=== PATIENT | female | born 1990 | race Caucasian/White ===

== ENCOUNTER 2017-01-04 11:45 | Emergency (ER) | payer BC ==
[~2017-01-04] VITALS: Ht 167.6 cm; Wt 73.2 kg
[2017-01-04 11:52] VITALS: Ht 167.6 cm; Wt 73.2 kg
--- OUTSIDE RECORDS SUMMARY | 2017-01-04 12:03 | XMS REPORT | CCD ---
Author Author ELIZABETH QUINTANA Organization Unknown Address [address], [place] [id number] Phone 0 Care Team Providers Care Garment Steamer Name Role Phone AVEL MATTSON Attending Physician 0 Vital Signs Unknown. Allergies Unknown. Procedures Unknown. History of Immunizations Unknown. Problems Unknown. Results Unknown. Medications Unknown. Medications Administered Unknown. Encounters Unknown. Social History Smoking Status Code Start Date End Date Unknown if ever smoked [id number] Patient Decision Aids Unknown. Instructions You were admitted to [facility] on 09/25/2013. You were discharged from [facility] on 09/25/2013. Should you have any questions prior to discharge, please contact a member of your healthcare team. If you have left the hospital and have any questions, please contact your primary care physician. Chief Complaint and Reason For Visit Chief Complaint Date of Onset RT THUMB XRAY Function Status Unknown. Plan of Care Unknown. Referral/Transition of Care Unknown.
--- OUTSIDE RECORDS SUMMARY | 2017-01-04 12:03 | XMS REPORT | Summary of Care ---
Author Author Latisha Lawrence M.D. Organization Unknown Address Unknown Phone Unavailable Care Team Providers Care Credit Union Field Examiner Name Role Phone Latisha Lawrence M.D. Unavailable Unavailable Dunia Beckford Unavailable Unavailable Unavailable Unavailable Functional Status Name Dates Details Functional status health issues are not documented Status: Name Dates Details Cognitive status health issues are not documented Status: Problems Name Dates Details Ear pain (388.70, H92.09) Status: Active Decreased sense of smell (781.1, R43.8) Status: Active Ear pressure (388.8, H93.8X9) Status: Active Nasal congestion (478.19, R09.81) Status: Active Gluten enteropathy (579.0, K90.0) Status: Active Vitamin D deficiency (268.9, E55.9) Status: Active Allergic rhinitis due to other allergen (477.8, J30.89) Status: Active Allergic rhinitis due to pollen (477.0, J30.1) Status: Active Eustachian tube dysfunction, bilateral (381.81, H69.83) Status: Active History of wheezing (V12.69, Z87.898) Status: Active Recurrent otitis externa, bilateral (380.10, H60.93) Status: Active Medications Name Dates Details Flonase Allergy Relief 50 MCG/ACT Nasal Suspension * Start 28-Apr-2015 Active Dupree 5-325 MG Oral Tablet * Refills: 0 Active Orsythia 0.1-20 MG-MCG Oral Tablet * Refills: 0 Active ProAir HFA 108 (90 Base) MCG/ACT Inhalation Aerosol Solution * Refills: 0 Active Sudafed TABS * Refills: 0 Active Claritin 10 MG Oral Tablet * Refills: 0 Active ClonazePAM 0.5 MG Oral Tablet * Refills: 0 Active Azelastine HCl - 0.1 % Nasal Solution 1 spray each nostril twice a day -as needed. * Quantity: 1 Refills: 6 Latisha Lawrence M.D. * Start 12-Dec-2016 Active 30 ML Bottle Fluticasone Propionate 50 MCG/ACT Nasal Suspension 1 spray each nostril-twice a day. * Quantity: 1 Refills: 6 Lawrence M.D., Latisha * Start 12-Dec-2016 End 10-Jul-2017 Active 16 GM Bottle Montelukast Sodium 10 MG Oral Tablet TAKE ONE TABLET BY MOUTH EVERY EVENING * Quantity: 30 Refills: 6 Lawrence M.D., Latisha * Start 12-Dec-2016 End 10-Jul-2017 Active Allergies and Adverse Reactions Name Dates Details Augmentin TABS (Allergy) Status: Active Procedures Procedure Dates Details History of Indirect Laryngoscopy (Diagnostic) History of Shoulder Surgery History of Cholecystectomy History of Ear Pressure Equalization Tube, Insertion, Bilaterally MOLD PANEL [id number] Ordered: 12-Dec-2016 Celiac Disease Comprehensive [id number] Ordered: 12-Dec-2016 Immunization Name Dates Details Immunizations not documented Family History Name Dates Details Family history of allergic rhinitis (V19.6, Z84.89) Status: Active Family history of urticaria (V19.4, Z84.0) Status: Active Family history of asthma (V17.5, Z82.5) Status: Active Social History Name Dates Details Unknown if ever smoked Vital Signs Date Test Result Details 12-Dec-2016 10:06 BP Systolic 120 mm[Hg] Status: Comments: Location: ; Position: BP Diastolic 70 mm[Hg] Status: Comments: Location: ; Position: Temperature 98.4 f Status: Comments: Method: Height 66.1 in Status: Weight 160.9 lb Status: Body Mass Index Calculated 25.89 kg/m2 Status: Body Surface Area Calculated 1.83 m2 Status: Results Date Description Value Details Results not documented Plan of Care Name Dates Details Planned Observations Planned Goals not documented Planned Encounters Appointment; Provider: Ean Abraham On 13-Feb-2017 08:30 Interventions Provided Medication Changes* Azelastine HCl - 0.1 % Nasal Solution - Start * Fluticasone Propionate 50 MCG/ACT Nasal Suspension - Start * Montelukast Sodium 10 MG Oral Tablet - Start Labs/Procedures/Imaging* Celiac Disease Comprehensive [id number]; To be Done: 12 Dec 2016 * MOLD PANEL [id number]; To be Done: 12 Dec 2016 Instructions Name Dates Details Instructions not documented Encounters Appointment; Cosme Hamlin M.D. Encounter Diagnosis: Problem not documented On 11-May-2015 08:30
--- OUTSIDE RECORDS SUMMARY | 2017-01-04 12:03 | XMS REPORT | Summary of Care ---
Author Author Latisha Lawrence M.D. Organization Unknown Address Unknown Phone Unavailable Care Team Providers Care Olericulturist Name Role Phone Latisha Lawrence M.D. 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 * Quantity: 1 Refills: 6 Bryan Lawrence M.D.ia * Start 12-Dec-2016 Active 30 ML Bottle Fluticasone Propionate 50 MCG/ACT Nasal Suspension 1 spray each nostril-twice a day. * Quantity: 1 Refills: 6 Howard BlackwoodLatisha * Start 12-Dec-2016 End 10-Jul-2017 Active 16 GM Bottle Montelukast Sodium 10 MG Oral Tablet TAKE ONE TABLET BY MOUTH EVERY EVENING * Quantity: 30 Refills: 6 Howard Blackwood Latisha * Start 12-Dec-2016 End 10-Jul-2017 Active Allergies and Adverse Reactions Name Dates Details Augmentin TABS (Allergy) Status: Active Procedures Procedure Dates Details History of Indirect Laryngoscopy (Diagnostic) History of Shoulder Surgery History of Cholecystectomy History of Ear Pressure Equalization Tube, Insertion, Bilaterally Procedures not documented Immunization Name Dates Details Immunizations not documented [...] m2 Status: Results Date Description Value Details 12-Dec-2016 13:11 THYROID STIM. HORMONE 3602 THYROID STIM. HORMONE 1.724 uIU/mL Range: 0.550-4.780 Comments: No established reference ranges for infants and children <2 years of age----- 13:11 Vitamin D, 25 - Hydroxy 3111 VITAMIN D, 25-HYDROXY 7 ng/mL (Below low threshold) Range: 30-100 13-Dec-2016 17:00 MOLD PANEL [id number] Comments: [facility] performed at: ID, [facility], [address], [place], [address], Ethanol Operations Manager: Price Rincon D.O., MPHQuest Collection Date/Time: [id number] Results Received Date/Time: [id number] Reported Date/Time: [id number] FASTING:NO PENICILLIUM NOTATUM (M1) IGE <0.10 kU/L Comments: [KS]----- CLASS 0 Comments: [KS]----- CLADOSPORIUM HERBARUM (M2) IGE <0.10 kU/L Comments: [KS]----- CLASS 0 Comments: [KS]----- ASPERGILLUS FUMIGATUS (M3) IGE <0.10 kU/L Comments: [KS]----- CLASS 0 Comments: [KS]----- MUCOR RACEMOSUS (M4) IGE <0.10 kU/L Comments: [KS]----- CLASS 0 Comments: [KS]----- AUREOBASIDIUM PULLULANS (M12) IGE <0.10 kU/L Comments: [KS]----- CLASS 0 Comments: [KS]----- EPICOCCUM PURPURASCENS (M14) IGE <0.10 kU/L Comments: [KS]----- CLASS 0 Comments: [KS]----- FUSARIUM MONILIFORME (M9) IGE <0.10 kU/L Comments: [KS]----- CLASS 0 Comments: [KS]----- HELMINTHOSPORIUM HALODES (M8) IGE <0.10 kU/L Comments: [KS]----- CLASS 0 Comments: [KS]----- PHOMA BETAE (M13) IGE <0.10 kU/L Comments: [KS]----- CLASS 0 Comments: [KS]----- STEMPHYLIUM BOTRYOSUM (M10) IGE <0.10 kU/L Comments: [KS]----- CLASS 0 Comments: [KS]----- 17:01 INTERPRETATION SEE NOTE Comments: [facility] performed at: ID, [facility] [place], [address] [place], [address], Ethanol Operations Manager: Price Rincon D.O., MPHQuest Collection Date/Time: [id number] Results Received Date/Time: [id number] Reported Date/Time: [id number] FASTING:NO Comments: Specific Level of AllergenIGE Class kU/L Specific IGE Antibody ----- --------- ----- 0 <0.10 Absent/Undetectable 0/1 0.10-0.34 Very Low Level 1 0.35-0.69 Low Level 2 0.70-3.49 Moderate Level 3 3.50-17.4 High Level 4 17.5-49.9 Very High Level 5 50-100 Very High Level 6 >100 Very High LevelThe clinical relevance of allergen results of0.10-0.34 kU/L are undetermined and intended forspecialist use.Allergens denoted with a "" include results usingone or more analyte specific reagents. In thosecases, the test was developed and its analyticalperformance characteristics have been determined by[facility]. It has not been cleared or approvedby the U.S. Food and Drug Administration. This assayhas been validated pursuant to the CLIA regulationsand is used for clinical purposes.[KS]----- 15-Dec-2016 08:11 Celiac Disease Comprehensive [id number] Comments: [facility] performed at: [BN] [facility], [address] [place] [address], [address], , Ethanol Operations Manager: Price Smith MDTesting performed at: [DA] [facility], [address] [place] [address], [place], [address], , Ethanol Operations Manager: FLORENTINO Shannon MD DEAMIDATED GLIADIN ABS, IGA 1 units Range: 0-19 Comments: Negative 0 - 19 Weak Positive 20 - 30 Moderate to Strong Positive >30----- DEAMIDATED GLIADIN ABS, IGG 3 units Range: 0-19 Comments: Negative 0 - 19 Weak Positive 20 - 30 Moderate to Strong Positive >30----- T-TRANSGLUTAMINASE (TTG) IGA <2 U/mL Range: 0-3 Comments: Negative 0 - 3 Weak Positive 4 - 10 Positive >10 Tissue Transglutaminase (tTG) has been identified as the endomysial antigen. Studies have demonstr- ated that endomysial IgA antibodies have over 99% specificity for gluten sensitive enteropathy.----- T-TRANSGLUTAMINASE (TTG) IGG <2 U/mL Range: 0-5 Comments: Negative 0 - 5 Weak Positive 6 - 9 Positive >9----- ENDOMYSIAL ANTIBODY IGA Negative Range: Negative IMMUNOGLOBULIN A, QN, SERUM 28 mg/dL (Below low threshold) Range: 87-352 Comments: Result confirmed on concentration.----- Plan of Care Name Dates Details Planned Observations Planned Goals not documented Planned Encounters Appointment; Provider: Ean Abraham On 13-Feb-2017 08:30 Instructions Name Dates Details Instructions not documented Encounters Appointment; Latisha Lawrence M.D. Encounter Diagnosis: Problem not documented On 12-Dec-2016 10:00 Appointment; Cosme Hamlin M.D. Encounter Diagnosis: Problem not documented On 11-May-2015 08:30
--- OUTSIDE RECORDS SUMMARY | 2017-01-04 12:03 | XMS REPORT | Summary of Care ---
Author Author Latisha Lawrence M.D. Organization Unknown Address Unknown Phone Unavailable Care Team Providers Care Link Wire Fabric Machine Operator Name Role Phone Latisha Lawrence M.D. Unavailable [...] Active Nasal congestion (478.19, R09.81) Status: Active Allergic rhinitis, unspecified allergic rhinitis type Status: Active Eustachian tube dysfunction, bilateral (381.81, H69.83) Status: Active Medications Name Dates Details Flonase Allergy Relief 50 MCG/ACT Nasal Suspension * Start 28-Apr-2015 Active [place] 5-325 MG Oral Tablet * Refills: 0 Active Orsythia 0.1-20 MG-MCG Oral Tablet * Refills: 0 Active ProAir HFA 108 (90 Base) MCG/ACT Inhalation Aerosol Solution * Refills: 0 Active Sudafed TABS * Refills: 0 Active Claritin 10 MG Oral Tablet * Refills: 0 Active ClonazePAM 0.5 MG Oral Tablet * Refills: 0 Active Allergies and Adverse Reactions Name Dates [...] Details Planned Observations Planned Goals not documented Instructions Name Dates Details Instructions not documented Encounters Appointment; Cosme Hamlin M.D. Encounter Diagnosis: Problem not documented On 11-May-2015 08:30
--- OUTSIDE RECORDS SUMMARY | 2017-01-04 12:03 | XMS REPORT | CCD ---
Author Author BJORN MARTINEZ Organization Unknown Address [address], [place] [id number] Phone 0 Care Team Providers Care Technical Support Technician Name Role Phone SANDOVAL BUTT Attending Physician 0 Vital Signs Unknown or Not Available. Allergies Unknown or Not Available. Procedures Unknown or Not Available. History of Immunizations Unknown or Not Available. Problems Unknown or Not Available. Results Unknown or Not Available. Active Medications Unknown or Not Available. Medications Administered During Visit Unknown or Not Available. Encounters Unknown or Not Available. Social History Smoking Status Code Start Date End Date Unknown if ever smoked [id number] Patient Decision Aids Unknown or Not Available. Discharge Instructions You were admitted to [facility] on 11/09/2016 09:41 You were discharged from [facility] on 11/09/2016 09:41 Should you have any questions prior to discharge, please contact a member of your healthcare team. If you have left the hospital and have any questions, please contact your primary care physician. Chief Complaint and Reason For Visit Chief Complaint Date of Onset NM HEPATOBILARY SCAN Function Status Unknown or Not Available. Plan of Care Unknown or Not Available. Referral/Transition of Care Unknown or Not Available.
--- OUTSIDE RECORDS SUMMARY | 2017-01-04 12:03 | XMS REPORT | CCD ---
Author Author ELIZABETH QUINTANA Organization Unknown Address [address], [place] [id number] Phone 0 Care Team Providers Care Cardiac Nurse Specialist Name Role Phone AVEL MATTSON Attending Physician 0 Vital Signs Unknown. Allergies Unknown. Procedures Unknown. History of Immunizations Unknown. Problems Unknown. Results Unknown. Medications Unknown. Medications Administered Unknown. Encounters Unknown. Social History Smoking Status Code Start Date End Date Unknown if ever smoked [id number] Patient Decision Aids Unknown. Instructions You were admitted to [facility] on 09/14/2013. You were discharged from [facility] on 09/14/2013. Should you have any questions prior to discharge, please contact a member of your healthcare team. If you have left the hospital and have any questions, please contact your primary care physician. Chief Complaint and Reason For Visit Chief Complaint Date of Onset XR LT THUMB INDEX FINGER Function Status Unknown. Plan of Care Unknown. Referral/Transition of Care Unknown.
--- OUTSIDE RECORDS SUMMARY | 2017-01-04 12:03 | XMS REPORT | Continuity of Care Document ---
Demographics Preferred Language Unknown Marital Status Unknown Anabaptist Affiliation Unknown Race Unknown Ethnic Group Unknown Author Author [facility] Address Unknown Phone Unavailable Allergies Active Description Code Type Severity Reaction Onset Reported/Identified Relationship to Patient Clinical Status Yes Augmentin 4242 Drug moderate Rash 11/12/2016 Medications Problems Date Dx Coded Attending Type Code Diagnosis Diagnosed By 11/20/2016 Adrian Melgar K82.8 Other Specified Diseases Of Gallbladder Procedures Results Encounters ACCT No. Visit Date/Time Discharge Status Pt. Type Provider Facility Loc./Unit Complaint [id number] 11/20/2016 10:40:00 [facility] Unknown [id number] 10/02/2013 09:26:00 [facility] Unknown [id number] 09/18/2013 09:34:00 [facility] Unknown
--- OUTSIDE RECORDS SUMMARY | 2017-01-04 12:03 | XMS REPORT | Summary of Care ---
Author Author Cosme Hamlin M.D. A Organization Unknown Address [address] [place] [phone] Phone Unavailable Care Team Providers Care Communication Center Coordinator Name Role Phone Hector Maria Isabel KHAN Unavailable Unavailable Unavailable Functional Status Functional Status Health Issues* Name Dates Details Functional status health issues are not documented Status: Cognitive Status Health Issues* Name Dates Details Cognitive status health issues are not documented Status: Problems Name Dates Details Ear pain (388.70, H92.09) Status: Active Decreased sense of smell (781.1, R43.8) Status: Active Ear pressure (388.8, H93.8X9) Status: Active Nasal congestion (478.19, R09.81) Status: Active Allergic rhinitis, unspecified allergic rhinitis type (477.9, J30.9) Status: Active Eustachian tube dysfunction, bilateral (381.81, H69.83) Status: Active Medications Name Dates Details Flonase Allergy Relief 50 MCG/ACT Nasal Suspension * Started 28-Apr-2015 Active Allergies and Adverse Reactions Name Dates Details Augmentin TABS Status: Active Procedures Procedure Dates Details History of Indirect Laryngoscopy (Diagnostic) History of Shoulder Surgery History of Ear Pressure Equalization Tube, Insertion, Bilaterally Procedures not documented Immunization Name Dates Details Immunizations not documented Social History Smoking Status* Unknown if ever smoked Vital Signs Date Test Result Details 11-May-2015 08:31 Temperature 96.9 f Status: Weight 158 lb Status: Results Date Description Value Details Results not documented Plan of Care Planned Observations* Name Dates Details Planned Goals not documented Goal Instructions * Instructions not documented Encounters Appointment; Cosme Hamlin Encounter Diagnosis: Problem not documented On 11-May-2015 08:30
--- NOTE | 2017-01-04 12:06 | NUR ---
SOLAR DESIGN ENGINEER N. NOLD SOLAR DESIGN ENGINEER AT BEDSIDE.
[2017-01-04] MEDS ORDERED: LEVO1TAB76 PO (12:09)
[2017-01-04] MEDS ORDERED: [UNRECOGNIZED DRUG - CODE] PO (12:09)
[2017-01-04] MEDS ORDERED: CHOL500050 PO (12:09)
[2017-01-04] MEDS ORDERED: DOXY100T2 PO (12:09)
--- OUTSIDE RECORDS SUMMARY | 2017-01-04 12:09 | XMS REPORT | Continuity of Care Document ---
Demographics Preferred Language Unknown Marital Status Unknown Muslim Affiliation Unknown Race Unknown Ethnic Group Unknown Author Author [facility] Organization [facility] Address Unknown Phone Unavailable Allergies Active Description Code Type Severity Reaction Onset Reported/Identified Relationship to Patient Clinical Status Yes Augmentin 4242 Drug moderate Rash 11/12/2016 Medications Problems Date Dx Coded Attending Type Code Diagnosis Diagnosed By 11/20/2016 Adrian Melgar K82.8 Other Specified Diseases Of Gallbladder Procedures Results Encounters ACCT No. Visit Date/Time Discharge Status Pt. Type Provider Facility Loc./Unit Complaint [id number] 11/20/2016 10:40:00 [facility] Unknown [id number] 10/02/2013 09:26:00 [facility] Unknown [id number] 09/18/2013 09:34:00 ACT Unknown
--- NOTE | 2017-01-04 12:15 | ERPDOC ---
Departure Disposition Decision Date: Jan 04, 2017 Disposition Decision Time: 13:07 (JEFFREY BROWNLeilani Smith APRN) Disposition: 01 DISCHARGED HOME, SELF-CARE Impression Impression (KRISTEN BROWN Sarah NATHAN) Impression: Primary Impression: Pupil dilated Severity: Moderate (STEPHANIEKRISTENLeilani Smith APRN) Condition: Stable Seen By: Mid-level only (SHILOKRISTEN RICO APRN) Referrals: SANDOVAL BUTT MD (Family) Patient Instructions: Eye Pain (ED) Problems/Meds/Labs Reviewed?: Yes Medications reviewed and manag: Yes (JEFFREY BROWNLeilani Smith APRN) Additional Instructions: I do want you to follow up next week with your eye doctor for further evaluation of your eye. I do also want you to make an appointment with your primary care provider for evaluation as well. I do recommend that you do not take any medication with pseudoephedrine in the tablet as well. May continue to take the Doxycycline and your regular scheduled medications. Return to Er with any eye pain, change in vision, headaches, or any other issues/concerns. Follow up care ordered?: Yes Mental Status: Alert, Oriented (KRISTEN BROWN Sarah NATHAN) [facility] - EE General General Chief Complaint: Eye Problems Stated Complaint: ENLARGED R PUPIL Time Seen by Provider: 12:02 Source: patient Exam Limitations: no limitations (STEPHANIEKRISTENLeilani Smith APRN) Time Seen by Provider: 12:02 (ANAMARIA RIVAS DO) HPI - EENT General Initial Comments She noticed earlier this week that the right pupil was a little larger than the left pupil. She noticed this more in dim light than in bright light. She has not had any change in her vision at all and denies any headaches, nausea/ vomiting, or other neurological symptoms. She did call her eye doctor this morning and he recommended that she go to her PCP office as they were unable to get her in to the office this morning. She did call her PCP office and they were not able to get her in either so they recommended that she come to Er. She has never noticed this in the past at all. She did have her gallbladder taken out on November 14. Has had some sinus drainage and congestion and is taking Doxycycline for this. Does take control and is also taking an OTC cough medication. Occurred At: home Onset/Timing: Gradual Duration: 1 week Severity: moderate Location: eye (R) Prearrival Treatment: no prearrival treatment Associated Symptoms: DENIES: change in hearing, cough, drooling, ear drainage, facial pain/swelling, fever, malaise, nasal congestion/drainage, poor fluid intake, poor solids intake, sinus infection, sore throat, tooth pain, voice change (NOLD,KRISTEN N FINAL COAT SPRAYER) Allergies: Coded Allergies: amoxicillin (Verified Allergy, Unknown, 01/04/17) clavulanic acid (Verified Allergy, Unknown, 01/04/17) Past History Past Medical History Pt denies signifigant PMH (NOLD,KRISTEN N FINAL COAT SPRAYER) Surgical History General: gallbladder (NOLD,KRISTEN N FINAL COAT SPRAYER) Family History Family History: Negative (NOLD,KRISTEN N FINAL COAT SPRAYER) Social History Smoking Status: Never smoker Substance Use Type: does not use Alcohol Intake: none (NOLD,KRISTEN N FINAL COAT SPRAYER) Review of Systems Constitutional Constitutional: DENIES: chills, dizziness, fatigue, fever, weakness (NOLD, KRISTEN N [employer] SPR[employer]ER) Eyes General: DENIES: burning, erythema, exudate, foreign body sensation, itching, pain, photophobia, watering Lids/Accessories: DENIES: eye protrusion, ptosis, swelling Vision: DENIES: acuity, aura, blurring, bright flashes, double vision, loss of visual faith, tunnel vision (NOLD,KRISTEN N FINAL COAT SPRAYER) ENMT Ears: DENIES: drainage, pain Sinuses: DENIES: congestion, rhinorrhea Mouth/Throat: DENIES: painful swallowing, scratchy throat, sore throat (NOLD, KRISTEN N FINAL COAT SPRAYER) Cardiovascular Cardiac: DENIES: chest pain, orthopnea Rhythm/Rate: DENIES: irregular beat, palpitations (NOLD,KRISTEN N FIN[employer]AT SPRAYER) Pulmonary Respiratory: DENIES: cough, dyspnea, sputum, tachypnea (NOLD,KRISTEN N FINAL [employer]AT SPRAYER) GI Upper Abdomen: DENIES: nausea, pain, vomiting Lower Abdomen: DENIES: constipation, diarrhea, pain (NOLD,KRISTEN N FINAL COAT SPRAYER) General: DENIES: dysuria, frequency, urgency (NOLD,KRISTEN N FINAL COAT SPRAYER) Integumentary Skin: DENIES: rash (NOLD,KRISTEN N FINAL COAT SPRAYER) Neurological General: DENIES: blackouts, blindness, change in strength, headache, numbness, paralysis/paresis, poor coordination, tingling, weakness (KRISTEN BROWN APRN) Physical Exam General General Nourishment: well nourished, well developed, appears stated age, no acute distress, adult General Body Habitus: well groomed (KRISTEN BROWN APRN) Vitals and Pain First Documented Vital Signs Date Time Temp Pulse Resp B/P Pulse Ox O2 Delivery O2 Flow Rate FiO2 01/04/17 11:52 97.3 90 12 139/79 98 Room Air (ANAMARIA RIVAS DO) Vitals and Pain Weight: Kilograms: 73.200 Height (feet): 5 Height (inches): 6.00 Triage Pain Scale: (KRISTEN BROWN APRN) RN VS reviewed by Provider: Yes (KRISTEN BROWN APRN) Normal Exams: Head: Normocephalic w/o trauma ENMT: No facial trauma, nasal exudates, pharyngeal erythema, or exudates are noted Neck: Full range of motion, without adenopathy, JVD, bruits or thyromegaly Chest/Resp: Clear all faith, with good airflow, and symmetry bilaterally CV: Regular rate and rhythm, without murmur or gallop, Pulses 2+ all extremities, capillary refill, <2 seconds all ext., no pedal edema noted Abdomen: Bowel sounds positive, soft, non-tender, non-distended, no hepatosplenomegaly, masses or bruits noted Lymphatic: No lymphadenopathy, or lymphedema noted Integumentary: No rashes, hives, or bruising noted Neurologic: Patient is alert, and oriented, cranial nerves, motor/sensory/ cerebellar, exams w/o gross deficits, to observation Psychiatric: Patient exhibits, appropriate attention, emotion and affect (KRISTEN BROWN APRN) Eyes Eyes Detail #1: Location: Right Foreign Body: FOUND no abnormalities Pupils: FOUND 6 mm, FOUND Round, FOUND Reactivity Normal, FOUND Accomodation Present Cornea: FOUND no abnormalities Conjunctiva: FOUND no abnormalities Sclera: FOUND no abnormalities Anterior Chamber: FOUND no abnormalities Lens: FOUND no abnormalities Posterior Chamber Vitreous: NOT FOUND hemorrhage Eyelids: FOUND no abnormalities, NOT FOUND ptosis, NOT FOUND proptosis Visual Faith: no deficit Visual Acuity/Best: FOUND 20/20 Eyes Detail #2: Location: Left Foreign Body: FOUND no abnormalities Pupils: FOUND 5 mm, FOUND Round, FOUND Reactivity Normal, FOUND Accomodation Present Cornea: FOUND no abnormalities Conjunctiva: FOUND no abnormalities Sclera: FOUND no abnormalities Anterior Chamber: FOUND no abnormalities Lens: FOUND no abnormalities Posterior Chamber Vitreous: FOUND no abnormalities Eyelids: FOUND no abnormalities, NOT FOUND ptosis, NOT FOUND proptosis Visual Faith: no deficit Visual Acuity/Best: FOUND 20/20 (NOLINTONESA N FINAL COAT SPRAYER) Neurologic GCS Adult : GCS Eye Opening: (4)Spontaneous GCS Verbal: (5)Oriented GCS Motor: (6)Obeys Commands (NOKRISTEN RICO N FINAL COAT SPRAYER) Differential Diagnoses Considering: Other (dilated pupil, increased intraocular pressure, Horners' syndrome, ICH, Intracranial mass or lesion) (KRISTEN BROWN APRN) Progress Results/Orders Orders Procedure Category Date Status Time Tetracaine 0.5% Eye PHA 01/04/17 Complete Drops (Tetracaine 0. 12:30 Ct Head W/O Contrast CT 01/04/17 Resulted (ANAMARIA RIVAS DO) Medications Current ED Medications Tetracaine HCl (Tetracaine 0.5% Eye Drops) 1 drop O ONCE BOTH EYES Last administered on 01/04/17t 12:20; Start 01/04/17 at 12:30; Stop 01/04/17 at 12:31 ; Status DC (ANAMARIA RIVAS DO) Progress Progress IOP were done and were 9, 13, and 10 on the right eye and on the left eye they were 10, 9, 14. I did speak with Dr Umana and he did recommend that if IOP were normal and her eye exam is normal then to have her follow up with PCP or eye doctor next week. CT scan today was normal. Did talk with Chayito that given that she is having no other symptoms at all-eye pain, vomiting, headache, visual changes, and her IOP and CT scan were normal we could let her go home and have her follow up with her eye doctor next week as scheduled. I did also recommend that she make an appointment with her PCP for next week as well. If her eye exam comes out normal then she may need further workup including MRI or neurology referral. Strict return precautions were given-eye pain, headache, visual changes, or neurological concerns. Verbalized understanding of these instructions. (KRISTEN BROWN APRN) CT CT : Reason for Exam: dilated pupil CT: Head no contrast Interpretation: Normal (KRISTEN BROWN APRN) KRISTEN BROWN APRN Jan 04, 2017 12:15 ANAMARIA RIVAS DO Jan 05, 2017 06:13
--- NOTE | 2017-01-04 12:20 | NUR ---
TANDEM MILL ROLLER N. NOLD TANDEM MILL ROLLER AT BEDSIDE.
[2017-01-04] MEDS ORDERED: TETRACAINE 0.5% EYE DROPS 4ml BOTTLE BOTH EYES ONE (12:30)
--- NOTE | 2017-01-04 12:33 | NUR ---
CT PT TO CT VIA RNEY.
--- NOTE | 2017-01-04 12:40 | NUR ---
CT PT RETURNED.
--- NOTE | 2017-01-04 12:50 | DI ---
Indication: ITS.REASON: right pupil enlarged PROCEDURE: CT HEAD W/O CONTRAST: Encounter: Initial Comparison: None Technique: Axial CT images through the head were performed without contrast. Iterative Reconstruction dose reducing technique was utilized. FINDINGS: The ventricles are of normal size, shape, and configuration for the patient's age. There is no evidence of acute intracranial hemorrhage, midline displacement, or mass effect. The CT attenuation of the brain parenchyma is normal within the cerebellum, brain stem, and cerebral hemispheres. The tympanic cavities and mastoid air cells are free of appreciable disease. There are no definite fractures of the skull base, calvarium, or visualized portion of the midface. Mild ethmoid sinus disease. IMPRESSION: No CT evidence of acute intracranial abnormality. .
--- NOTE | 2017-01-04 13:03 | NUR ---
DRAG DOWN N. NOLD DRAG DOWN AT BEDSIDE.
[2017-01-04 13:17] VITALS: BP 141/82; PULSE 77; RESP 12; TEMP 98.1; O2SAT 97
== END 2017-01-04 13:17 | disposition home or self-care (01) ==
LOC: ED 11:45
DX: H57.04 Mydriasis (principal)